=== PATIENT | female | born 1935 | race Caucasian/White ===

== ENCOUNTER 2016-07-09 16:59 | Emergency (ER) | payer MEDICARE, BC ==
[~2016-07-09 16:59] MED LIST: ANTIVERT25 M1 PO; ASPIR 8181 M1 PO; ASPIRIN325 M3 PO; AUGMENTIN 875-1 EAC2 PO; BONIVA150 M1 PO; CALCIUM 600 +1 EA12 PO; CALCIUM 600 WI1 EACH PO; CHROMIUM PICO400 MCG PO; COLACE100 M1 PO; FENOFIBRATE145 MG PO; HYCET 7.5 MG-3473 M2 PO; LEVOTHROID125 MCG PO; LEVOTHROID150 MCG PO; LIPITOR20 M1 PO; LOVASTATIN10 M1; LOVASTATIN10 M1 PO; LOVENOX40 MG/0.1 SC; MULTIVITAMIN1 TAB PO; NORCO 5-325 TA1 EACH PO; NORMAL SALINE FL2 ML ASD; OMEPRAZOLE40 MG PO; PAXIL20 M1 PO; PAXIL20 MG PO; PRILOSEC40 M1 PO; SENNA S TABLET1 TAB PO; SYNTHROID125 MC1 PO; THYROID120 MG PO; TYLENOL EXTRA500 M1 PO; VITAMIN D-1000 UNIT/ PO; VITAMIN D31000 UNI3 PO; WELLBUTRIN; WELLBUTRIN SR150 M2 PO; WELLBUTRIN SR150 MG PO; WOMEN'S DAILY1 EAC6 PO; ZOFRAN4 M2 PO; [UNRECOGNIZED DRUG - OTHER] ASD
== END 2016-07-09 18:38 ==
LOC: EDMED 16:59
DX: S80.211A Abrasion, right knee, initial encounter (principal); E03.9 Hypothyroidism, unspecified; Z86.73 Personal history of transient ischemic attack (TIA), and cerebral infarction without residual deficits; Z79.890 Hormone replacement therapy; Z79.899 Other long term (current) drug therapy; W01.0XXA Fall on same level from slipping, tripping and stumbling without subsequent striking against object, initial encounter; Y93.01 Activity, walking, marching and hiking; Y92.410 Unspecified street and highway as the place of occurrence of the external cause; Y99.8 Other external cause status